=== PATIENT | male | born 1995 | race Caucasian/White ===

== ENCOUNTER 2022-10-07 08:58 | Outpatient (CLI) | payer OTHER ==
--- NOTE | 2022-10-07 21:06 | MRI Report ---
PROCEDURE: FOOT WO - RT INDICATIONS: PAIN IN RIGHT FOOT TECHNIQUE: Noncontrast sagittal T1 spin echo and T2 fast spin echo with fat saturation, long-axis T1 spin echo a nd T2 fast spin echo with fat saturation, short-axis proton density fast spin echo and T2 fast spin e cho with fat saturation through the forefoot. COMPARISON: None. FINDINGS: Image quality: Excellent. Bones and joints: No bone marrow contusions or metatarsal stress fractures. The sesamoid bones appe ar in expected positions, without internal edema. No metatarsophalangeal joint degeneration. No int raosseous lesions. Soft tissues: The visualized plantar foot muscles demonstrate normal signal and bulk. Visualized fl exor and extensor tendons appear intact, without tenosynovitis. No soft tissue ganglion cysts or bur karen fluid collections. Sagittal images demonstrate low to moderate grade partial-thickness tear invo lving lateral sesamoid phalangeal ligament of first MTP joint with slight proximal retraction of late ral sesamoid compared to the medial sesamoid. IMPRESSION: 1. Finding is suggestive of low-grade turf toe injury involving lateral sesamoid of first metatarsal head with low to moderate grade partial-thickness tear involving lateral sesamoid phalangeal ligament of first MTP joint. 2. No marrow edema. No fracture or dislocation. No evidence of metatarsal stress fracture. 3. No other tendon or ligament abnormality is seen. Reviewed by: Wade Olguin MD on 10/07/2022 9:04 PM PDT Approved by: Wade Olguin MD on 10/07/2022 9:04 PM PDT Station ID: [id number]
== END 2022-10-07 08:59 | disposition home or self-care (01) ==
LOC: DI 08:58
PROVIDERS: ATTEND Family Medicine
DX: M79.671 Pain in right foot (principal)